=== PATIENT | female | born 1950 | race Caucasian/White ===

== ENCOUNTER 2018-11-16 09:58 | Day surgery (SDC) | payer OTHER ==
[2018-11-12 16:55] LABS: Absolute Lymphocytes (CBC) 1.7 K/uL (0.7-4.9); Basophils % 0.5 % (0-1.3); Hematocrit 46.7 % (36.0-45.0); Lymphocytes % 17.5 % (15.3-44.8); MPV 8.6 fL (7.6-11.3)
[2018-11-12 17:00] LABS: Protime INR 0.92
--- NOTE | 2018-11-12 17:13 | RAD REPORT ---
EXAM DESCRIPTION: RAD - Chest Pa And Lat (2 Views) - 11/12/2018 4:37 pm CLINICAL HISTORY: preop, patient pending foot surgery COMPARISON: March 2011 TECHNIQUE: PA and lateral views of the chest were obtained. FINDINGS: The lungs are clear. Lung markings are similar to comparison. Heart size is normal and ce ntral vasculature is within normal limits. No pleural effusion or pneumothorax seen. No acute bony finding noted. No aortic abnormality. IMPRESSION: No acute cardiopulmonary process.
[2018-11-12 17:46] LABS: Urine Appearance CLEAR; Urine Bilirubin NEGATIVE (NEG); Urine Blood NEGATIVE (NEG); Urine Color YELLOW; Urine Glucose NEGATIVE (NEG); Urine Protein NEGATIVE (NEG); Urine Specific Gravity 1.015 (1.005-1.030); Urine Urobilinogen 0.2 mg/dL (0.2-1.0); Urine pH 6.5 (5.0-7.0)
[2018-11-12 18:15] LABS: Urine Microscopic Reflex NO UMIC
--- NOTE | 2018-11-13 10:33 | EKG ---
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
[~2018-11-16 09:58] MED LIST: HYDROCORTISONE SUC 100 MG INJ IV ONE
[2018-11-16] MEDS ORDERED: LIDOCAINE 1% 20 ML MDV ONE (10:14)
[2018-11-16] MEDS ORDERED: HYDROCORTISONE SUC 100 MG INJ ONE (10:15)
[2018-11-16] MEDS ORDERED: Ringers Lactate 1,000 ML IV ONE (10:16)
[2018-11-16] MEDS ORDERED: PROPOFOL 200 MG/20 ML VIAL IV ONE ×2 (10:27→11:05)
[2018-11-16] MEDS ORDERED: FENTANYL CITR 100 MCG/2 ML ONE (10:28)
[2018-11-16] MEDS ORDERED: NS 0.9% VIAL 10 ML ONE (10:28)
[2018-11-16] MEDS ORDERED: LIDOCAINE 2% MPF 5 ML VIAL ONE (10:28)
[2018-11-16] MEDS ORDERED: MIDAZOLAM HCL 2 MG/2 ML INJ ONE (10:28)
--- NOTE | 2018-11-16 11:23 | P.OP ---
Preoperative diagnosis: right hallux ganglionic cyst Postoperative diagnosis: same Primary procedure: right hallux ganglion excision Anesthesia: mac with 8cc 1:1 0.5% marcaine 1% lidocaine plain Estimated blood loss: <10 cc Specimen: cyst for pathology Findings: ganglionic cyst right hallux ipj Operative Technique: right hallux ganglion dorsal aspect of ipj excision Complications: None Transferred to: Recovery Room Condition: Good
[2018-11-16 12:20] VITALS: BP 126/68; TEMP 96.5; O2SAT 96
--- NOTE | 2018-11-16 22:08 | OP ---
Date of Procedure: 11/16/2018 Surgeon: Sundar Sullivan Jr, DPM Preoperative Diagnosis: Right hallux ganglionic cyst. Postoperative Diagnosis: Right hallux ganglionic cyst. Procedure: Right hallux ganglion excision. Pathology: Soft tissue sent for pathologic examination. Anesthesia: MAC with 8 mL of0.5% Marcaine, 1% lidocaine plain. Hemostasis: Pneumatic ankle tourniquet at 250 mmHg. Estimated Blood Loss: Less than 10 mL. Materials: 4-0 Prolene and 4-0 Vicryl. Injectables: None. Complications: None. Procedure In Detail: Patient was to the [facility] operating room and placed on the OR table in a supine position. Patient was placed under sedation by the anesthesiologist and 8 mL 0.5% Marcaine, 1% lidocaine plain were injected in local fashion in the right lower extremity. A well-padded pneumatic ankle tourniquet was applied to the right lower extremity and the patient was prepped and draped in the usual aseptic manner. The right lower extremity was exsanguinated utilizing Esmarch bandage. Pneumatic ankle tourniquet was inflated to 250 mmHg. Attention was directed to the dorsal medial aspect of the right hallux IPJ, at which time a recurrent ganglionic cyst was identified. At this time 2 converging semi-elliptical incisions were made in a medial to lateral orientation over the dorsum of the IPJ. Skin incision was carried through superficial deep taking care to cauterize and ligate intractable neurovascular structures as necessary. The skin wedge was removed in toto. Skin incision was carried deeper to the capsular level, at which time capsular excision was performed followed by use of Bovie to stop any bleeding and hopefully retard the potential for regrowth of the ganglion. At this time, the wound was irrigated with copious amounts of normal sterile saline reapproximation of deep structures with 4-0 Prolene Vicryl and skin with 4-0 Prolene. A sterile dressing consisting of Xeroform, 4 x 4s, [place], and an Vitaly wrap was applied to the right lower extremity. The patient tolerated the procedure and anesthesia well, was transferred to recovery with vital signs stable and neurovascular status intact. BEBO/MIHIR Voice ID: [id number] Report ID: [id number] LETY
== END 2018-11-16 12:53 | disposition home or self-care (01) ==
LOC: OR 09:58
PROVIDERS: ATTEND Podiatrist Foot & Ankle Surgery
PROC: 0SBP0ZZ Excision of Right Toe Phalangeal Joint, Open Approach (ICD-10-PCS; principal; 2018-11-16 11:00)
DX: M67.471 Ganglion, right ankle and foot (principal); E27.1 Primary adrenocortical insufficiency
CPT/HCPCS: 28092; 93005; 85025; 36415; 85610; 88304; 85730; 81003; 71046; J2704 ×2; J2250; J3010; J1720 ×2

== ENCOUNTER 2018-12-29 15:52 | Inpatient (IN) | payer OTHER ==
[2018-12-29] MEDS ORDERED: ONDANSETRON 4 MG/2 ML VIAL IV PRN (16:32)
[2018-12-29] MEDS ORDERED: MORPHINE 2 MG/ML SYR IV PRN (16:32)
[2018-12-29 16:57] LABS: Absolute Lymphocytes (CBC) 1.1 K/uL (0.7-4.9); Basophils % 0.4 % (0-1.3); Hematocrit 48.4 % (36.0-45.0); Lymphocytes % 7.9 % (15.3-44.8); MPV 8.5 fL (7.6-11.3); RBC Red Blood Cell Count 5.26 M/uL (3.86-4.86)
[2018-12-29 17:02] VITALS: BMI 27.8
[2018-12-29 17:24] LABS: Bilirubin Total 0.7 mg/dL (0.2-1.0); Magnesium 2.1 mg/dL (1.8-2.4); Potassium 4.2 mmol/L (3.5-5.1); Protein, Total 7.7 g/dL (6.4-8.2); Thyroid Stimulating Hormone 0.397 uIU/mL (0.360-3.740)
[2018-12-29] MEDS: D5 0.9 NS 1,000 ML IV SCH (17:32)
[2018-12-29] MEDS: METRONIDAZOLE 500mg IVPB 500 MG/100 ML BAG IV SCH (17:34)
[2018-12-29] MEDS: Levofloxacin500mg IV 500 MG/100 ML BAG IV SCH (18:39)
--- NOTE | 2018-12-29 19:42 | RAD REPORT ---
EXAM DESCRIPTION: CT - Abdomen Pelvis Wo Contrast - 12/29/2018 7:21 pm CLINICAL HISTORY: acute diverticulitis Right lower quadrant pain, history of appendectomy COMPARISON: CTANGIO CHEST dated 04/04/2011 TECHNIQUE: Axial [address] imaging of the abdomen and pelvis was performed without IV contrast. No IV contrast was given because of allergy, abnormal renal function, patient refusal or physician re quest. Oral contrast was given. All CT scans are performed using dose optimization technique as appropriate and may include automated exposure control or mA/KV adjustment according to patient size. FINDINGS: No suspicious findings in the lung bases. The liver, spleen and pancreas show no suspicious findings on non-contrast imaging. Gallbladder and b iliary tree are also without suspicious finding. No hydronephrosis or suspicious renal mass. No significant adrenal finding. Isodense renal masses an d pyelonephritis cannot be excluded in the absence of IV contrast. The urinary bladder is without sig nificant finding. Uterus is absent. No ovarian abnormality. No gastric dilatation or gastric wall thickening. No acute small bowel finding. Oral CT contrast has reached the proximal sigmoid colon. Prominent sigmoid diverticulosis is present. There is scattered d iverticulosis elsewhere in the colon. The tip of the cecum is abnormal. There is irregular nodular th ickening at the tip of the cecum extending superiorly towards the ileocecal valve. Edematous/inflamma tory stranding is present at the tip of the cecum. By history the appendix is absent. There is a shor t segment approximately 12 mm in length that appears to be an appendiceal stump. Punctate air densiti es present adjacent to the lumen. These are believed to still be within the lumen of the bowel or div erticulum. No definitive extraluminal free air. Multiple small reactive type lymph nodes are present in the right lower quadrant. Differential considerations for the cecum finding include acute appendicitis within an appendiceal st ump. Colitis/ diverticulitis could be present at the tip of the cecum. A cecum carcinoma cannot be ex cluded. No free air or pneumatosis. No free fluid. No hernia, mass or bulky lymphadenopathy. No suspicious bony findings. IMPRESSION: Irregular nodular wall thickening in the cecum from ileocecal valve to the tip. There is surrounding inflammatory/ edematous stranding and small reactive lymph nodes. Patient does appear to have a small remnant stump of the appendix. An acute stump appendicitis would be a differential consideration. Colitis/diverticulitis can occur in this location. Carcinoma of the cecum cannot be excluded. No extraluminal free air confirmed. No abscess. Full assessment is limited is the absence of IV contrast.
[2018-12-29 19:47] LABS: Blood Morphology Comment NOT SEEN (NOT SEEN); Platelet Estimate ADEQ
[2018-12-29 19:58] LABS: Urine Appearance CLEAR; Urine Bilirubin NEGATIVE (NEG); Urine Blood 1+ (NEG); Urine Color YELLOW; Urine Glucose NEGATIVE (NEG); Urine Protein NEGATIVE (NEG); Urine Specific Gravity <=1.005 (1.005-1.030); Urine Urobilinogen 0.2 mg/dL (0.2-1.0)
[2018-12-29] MEDS ORDERED: WATER FOR INJ,STERILE 10 ML ONE (20:13)
[2018-12-29 20:46] LABS: Urine Bacteria <20 /HPF (<20); Urine Culture Reflex Order NOT NEEDED; Urine RBC <5 /HPF (NONE SEEN)
[2018-12-29] MEDS: HYDROCORTISONE SUC 100 MG INJ IV SCH (21:52)
[2018-12-29] MEDS: FAMOTIDINE 20 MG/2 ML VIAL IV SCH (21:52)
[2018-12-30] MEDS: METRONIDAZOLE 500mg IVPB 500 MG/100 ML BAG IV SCH ×5 (00:01→23:46)
--- NOTE | 2018-12-30 02:11 | HP ---
Date of Admission: 12/29/2018 Chief Complaint: Abdominal pain. History Of Present Illness: This is a 68-year-old very pleasant female patient who came into office today with 2 weeks history of abdominal pain. Patient reports that about 2 weeks ago she started to have this right lower quadrant abdominal pain and it was intermittent to start with, but over a perio d of time severity of the pain has gotten worse and the pain is more continuous now. As of last nigh t, she started to have some fever, temperature went up to 100.6 degrees Fahrenheit. She is also havi ng intermittent nausea and vomiting in last 2 weeks with this pain. The pain is localized in the rig ht lower quadrant, does not radiate anywhere. No aggravating or relieving factors. She normally has 2-3 bowel movements a day, but in last 2 weeks with this pain she has 3-4 soft to loose bowel moveme nts. Denies any blood in stool. After I evaluated her today, she was admitted to the hospital. Allergies: TO SULFA. Medications: List reviewed. Review of Systems: GI: As mentioned above. Constitutional: As mentioned above. All other systems reviewed is negative. Past Medical History: Significant for Hammon's disease, diverticulosis, hypothyroidism. Past Surgical History: Appendectomy and abdominoplasty. Family History: Not pertinent. Social History: Negative for smoking, use of alcohol socially. Physical Examination: Vital Signs: Height 5 feet 4 inches, weight 162 pounds, temperature , pulse , re spiratory rate , blood pressure . General: Awake, alert, oriented, not in distress. HEENT: Head atraumatic, normocephalic. Conjunctivae nonerythematous. Sclerae white. Mouth, no thr ush or edema noted. Ears/Nose, no mass, lesion, discharge noted. Neck: Supple. No JVD, lymph nodes, bruit, thyromegaly noted. Lungs: Bilateral good equal air entry. Clear to auscultation. No rhonchi. No rales. Heart: Normal heart sounds, no murmur or gallop. Abdomen: Soft, no distention. No guarding, rigidity. Bowel sounds normal. No hepatosplenomegaly. Patient has severe tenderness in right lower quadrant. Extremities: No leg edema. No calf tenderness. Skin: No rash, ulcer, cellulitis. Lymphatics: No lymph node enlargement in neck, supraclavicular, infraclavicular region. Neuro: No focal neurological deficit. Chest: Unremarkable. External Genitalia: Deferred. Rectal: Deferred. Laboratory Data: White count 13.6, hemoglobin 16.7, platelets 266. Sodium 136, potassium 4.2, chlor brando 103, bicarb 26, BUN 11, creatinine 0.94, glucose 111, lactic acid 1.2, procalcitonin less than 0. 05. Liver function tests unremarkable. TSH 0.397. Urinalysis negative. CAT of the abdomen and pel vis done without IV contrast today shows irregular nodular wall thickening in the cecum from ileoceca l valve to the tip. There is surrounding inflammatory and edematous stranding and small . Impression: 1.Acute appendicitis. 2.Diverticulosis. 3.Rule out carcinoma of cecum. 4.Hypothyroidism. 5.Girma's disease. Plan: Admit patient to hospital for further evaluation and management of this problem. The patient is appropriate for inpatient and is expected to spend 2 midnights in the hospital. We will go ahead and give IV steroid, IV Pepcid. DVT prophylaxis will be given using SCD. We will keep her n.p.o. I V fluid and IV antibiotics will be started, which is Levaquin and Flagyl. CAT scan findings were dis cussed with the patient and her and recommended surgical consultation with Dr. Trammell and I di d call and talk to him and details were discussed with him as well. He will evaluate the patient bárbara orrow. We will give pain medication per order and the patient had a last colonoscopy within last few years showing diverticulosis. I did talk to Dr. Trammell about possibility of conservative treatment r ight now with IV antibiotics and once her condition improves then to do colonoscopy to evaluate abnor mality in the cecum and then consider any possible surgery. DEB/MODL Voice ID: [id number]
[2018-12-30 04:35] LABS: Absolute Lymphocytes (CBC) 1.3 K/uL (0.7-4.9); Basophils % 0.6 % (0-1.3); Hematocrit 44.1 % (36.0-45.0); Lymphocytes % 11.7 % (15.3-44.8); MPV 8.1 fL (7.6-11.3)
[2018-12-30 04:55] LABS: Magnesium 2.3 mg/dL (1.8-2.4); Potassium 4.5 mmol/L (3.5-5.1)
[2018-12-30] MEDS: D5 0.9 NS 1,000 ML IV SCH ×2 (06:13→11:09)
[2018-12-30] MEDS: FAMOTIDINE 20 MG/2 ML VIAL IV SCH ×2 (08:48→21:03)
[2018-12-30] MEDS: HYDROCORTISONE SUC 100 MG INJ IV SCH ×2 (08:48→21:03)
--- NOTE | 2018-12-30 13:17 | CON ---
Date of Consultation: 12/29/2018 Reason For Consultation: Abdominal pain. History Of Present Illness: Patient is a 68-year-old female, who has had been having intermittent ri ght lower quadrant abdominal pain for about the last 2 weeks. It became more constant over the last couple of days. She saw Dr. Sewell yesterday, found to be extremely tender in the right lower quadrant . She has had low grade fevers and she was admitted and workup was done and I was consulted. She is awake, alert, feels a little bit better. Still with pain in the right lower quadrant, but no nausea or vomiting. No blood in her stool. There is some soft and loose bowel movements. No constipation . No dysuria or hematuria. No sore throat, runny nose, cough, headaches, or dizziness. No chest pa in. Review of Systems: Otherwise unremarkable. Past Medical History: Significant for Girma disease, diverticulosis, hypothyroidism. She did have a colonoscopy in the last year or 2, which shows just diverticulosis. Past Surgical History: About greater than 11 years ago, I operated on this patient for peritonitis i n the right lower quadrant and she had a perforation of the small bowel, but it could not be identifi ed where it was secondary to a chicken bone. She was managed conservatively at that time. Laparosco pic appendectomy was performed as well. She recovered from that without difficulty and she has had n o issues up until recently. Past surgical history is appendectomy, abdominoplasty. Allergies: SULFA. Social History: Patient does not smoke. Drinks occasionally. Family History: Noncontributory. Physical Examination: Vital Signs: Currently are stable. She is afebrile. General: She is awake, alert, and oriented x3. Head And Neck: Cranial nerves 2 through 12 are grossly within normal limits. No neck masses. No JV D. Throat clear. Neck is supple. Chest: Clear. Heart: S1, S2. Abdomen: Soft, nondistended. Positive bowel sounds. Negative Rovsing sign. Positive right lower q uadrant tenderness with rebound. No rigidity or guarding. Minimal rebound. Extremity: Adequately perfused. Nontender. Neuro: Nonfocal. Laboratory Data: White count was 13.6 on admission, this morning is 11.4. Left shift is improving a s well. Chemistry reviewed procalcitonin and lactic acid are within normal limits. CT of the abdome n and pelvis reviewed. It shows prominent sigmoid diverticulosis, scattered diverticulosis, ulcer in the colon. The tip of the cecum is abnormal. There is irregular nodular thickening at the tip of t he cecum extending superiorly toward the ileocecal valve. Edematous inflammatory stranding is presen t at the tip of the cecum. By history, the appendix is absent. There is a short segment approximate 12 mm in length that appears to be an appendiceal stump. Punctate air density present adjacent to t he lumen, these are believed to be still within the lumen of the bowel or diverticulum. No definitiv e extraluminal free air and multiple small reactive type lymph nodes are present in the right lower q uadrant. Differential includes acute appendicitis within the appendiceal stump, colitis, diverticuli tis could be present within the tip of the cecum. Cecum carcinoma cannot be excluded. Assessment: Acute cecal colitis/diverticulitis, possible appendiceal stump appendicitis. Recommendations: At this time, manage the patient conservatively with IV antibiotics, serial abdomin al exam. Once her clinical symptoms improve, she needs at least 2 weeks of oral antibiotics and then GI consultation for colonoscopy and further recommendations will be made after the colonoscopy is done and biopsy of the area is done. Plan of care discussed in detail with the patient, , and Dr. Sewell. RAMYA/MIHIR Voice ID: [id number] Report ID: [id number]
[2018-12-30] MEDS: Levofloxacin500mg IV 500 MG/100 ML BAG IV SCH (16:00)
[2018-12-30] MEDS ORDERED: WATER FOR INJ,STERILE 10 ML ONE (20:26)
--- NOTE | 2018-12-30 23:55 | PN ---
Date of Progress Note: 12/30/2018 Subjective: Patient was seen this morning for followup. No new complaints or problems reported. He r abdominal pain remains unchanged from yesterday. She did use 1 dose of pain medication in the last night and that actually helped her with her pain. Objective: Vital Signs: Reviewed. HEENT: Unremarkable. Lungs: Clear to auscultation. Heart: Sounds normal. Abdomen: Soft. Bowel sounds normal. No guarding, rigidity. No distention. Patient has significan t tenderness in right lower quadrant, remains unchanged from yesterday. Extremities: No leg edema. Laboratory Data: White count 11.4, hemoglobin 15.7, platelets 231. Sodium 149, potassium 4.5, chlor brando 104, bicarb 28, BUN 13, creatinine 0.92, glucose 153, magnesium 2.3. Impression: 1.Acute diverticulitis. 2.[place] disease. 3.Hypothyroidism. Plan: Details were discussed with Dr. Trammell last night . Dr. Trammell does not think that wh at radiologist is thinking is appendix stump that is appearing to be infected, but Dr. Trammell thinks i t is probably diverticulum in the cecum and that is infected. In any case, he has suggested conserva tive treatment right now with medical management, IV antibiotics, and once her condition is better, w e will discharge her to go home with oral antibiotics, elective colonoscopy in 4-6 weeks, and then an y further intervention if needed. Depending on the colonoscopy and her response to treatment, we luz l be making those decisions on outpatient basis. Dr. Trammell has started her on clear liquid diet and ambulation was encouraged. I will see her tomorrow for followup, possible discharge to go home either tomorrow or day after tomorrow depending on her pain. DEB/MODL Voice ID: [id number] Report ID: [id number]
[2018-12-31 04:34] LABS: Absolute Lymphocytes (CBC) 1.2 K/uL (0.7-4.9); Basophils % 0.6 % (0-1.3); Hematocrit 41.1 % (36.0-45.0); Lymphocytes % 14.4 % (15.3-44.8); MPV 8.1 fL (7.6-11.3); RBC Red Blood Cell Count 4.45 M/uL (3.86-4.86)
[2018-12-31] MEDS: METRONIDAZOLE 500mg IVPB 500 MG/100 ML BAG IV SCH ×2 (06:12→11:00)
[2018-12-31 08:33] VITALS: O2SAT 95
[2018-12-31] MEDS: FAMOTIDINE 20 MG/2 ML VIAL IV SCH (08:36)
[2018-12-31] MEDS ORDERED: predniSONE 20 MG TAB PO SCH (09:00)
--- NOTE | 2018-12-31 11:18 | PN ---
Subjective: Patient is awake and alert and much better. Physical Examination: Vital Signs: Stable, afebrile. normal. Abdomen: Soft. Minimal tenderness in the right lower quadrant. No peritonitis. Assessment: Acute cecal inflammation either diverticulitis or colitis. Recommendation: Cleared from surgery standpoint for discharge on oral antibiotics. We will need col onoscopy in 4 to 6 weeks and surgical intervention based upon the finding. RAMYA/MIHIR Voice ID: [id number] Report ID: [id number]
[2018-12-31] MEDS: Levofloxacin500mg IV 500 MG/100 ML BAG IV SCH (16:00)
[2018-12-31 16:36] VITALS: BP 115/64; TEMP 97.5
--- NOTE | 2019-01-01 04:10 | DS ---
Date of Discharge: 12/31/2018 Disposition: Discharged to go home. Physical Examination: HEENT: Unremarkable. Lungs: Clear to auscultation. Heart: Sounds normal. Abdomen: Soft. Bowel sounds normal. No guarding, rigidity, distention. Very minimum tenderness in right lower quadrant, which is significantly better compared to yesterday and day before yesterday. Bowel sounds normoactive. Extremities: No leg edema. Laboratory Data: White count 13.6, hemoglobin 16.7, platelets 266. Today, white count 8.3, hemoglob in 14.3, platelets 230. Upon admission sodium 136, potassium 4.2 chloride 103, bicarb 26, BUN 11, cr eatinine 0.94. Today sodium 139, potassium 4.5, chloride 104 bicarb 28, BUN 13, creatinine 0.9. Hospital Course: 68-year-old pleasant female patient, admitted to the hospital after she came into e mergency room with right lower quadrant abdominal pain associated with nausea, vomiting, fever. Plea se see dictated H and P for more information. Patient had severe tenderness in right lower quadrant when I examined her at the office and she was admitted to the hospital. Was negative for any perfora tion. No evidence of free air under diaphragm. She was seen in consultation by Dr. Trammell from [facility]. Details were discussed with him. CAT scan of the abdomen shows evidence of inflammatory changes in the cecum and the patient had appendectomy obtained in the past. Stump of appendix appea red to be enlarged, inflamed, and behaving like acute appendicitis. Other possibility was that this area of abnormality that appears to be stump of the appendix, it could be diverticulum in the cecum. In any case, there was no free air under diaphragm. Dr. Trammell started her on clear liquid diet yest erday. She tolerated that well. This morning when I saw her her abdominal pain was significantly be tter. Tenderness was significantly better. She was discharged to go home in stable condition. Eric montoya either she had acute diverticulitis or she is acting like acute appendicitis with infection of the stump of appendix. In any case, she is responding well to IV antibiotic which were Levaquin and Flagyl. Our plan is to discharge her to go home with oral antibiotics and I will follow up next diego garcia at the office. Our plan is to give her adequate antibiotic therapy and then on outpatient basis sh e should have colonoscopy done in about 4 to 6 weeks and further plan of treatment will depend on elizabeth t. Final Diagnoses: 1.Acute diverticulitis. 2.Rule out acute appendicitis. 3.Carcinoma of colon. 4.Hypothyroidism. 5.[place] disease. Discharge Medications And Instructions: 1.Continue all prior home medication. 2.Take Levaquin 500 mg by mouth daily for 12 days. 3.Flagyl 500 mg 3 times a day for 10 days. 4.Follow up at my office next week per instructions. DEB/MODL Voice ID: [id number] Report ID: [id number]
== END 2018-12-31 17:37 | disposition home or self-care (01) | DRG 392 ==
LOC: 4TH 15:58
PROVIDERS: ADMIT Internal Medicine; ATTEND Internal Medicine
DX: K57.92 Diverticulitis of intestine, part unspecified, without perforation or abscess without bleeding (principal); K35.80 Unspecified acute appendicitis; E27.1 Primary adrenocortical insufficiency; C18.9 Malignant neoplasm of colon, unspecified; E03.9 Hypothyroidism, unspecified; Z88.2 Allergy status to sulfonamides
CPT/HCPCS: 36415; 74176; 80048; 80053; 81001; 83605; 83735; 84145; 84443; 85025; J1720; J2270; J7042; J7512

== ENCOUNTER 2021-02-06 19:35 | Emergency (ER) | payer OTHER ==
[2021-02-06] MEDS ORDERED: HYDROCORTISONE SUC 100 MG INJ ONE (19:59)
[2021-02-06] MEDS ORDERED: ONDANSETRON 4 MG/2 ML VIAL ONE (20:00)
[2021-02-06] MEDS ORDERED: KETOROLAC 30 MG/ML INJ ONE ×2 (20:00→21:15)
[2021-02-06] MEDS ORDERED: NA CHLORIDE 0.9% 1,000 ML ONE (20:00)
[2021-02-06 20:13] LABS: Absolute Lymphocytes (CBC) 3.6 K/uL (0.7-4.9); Basophils % 0.8 % (0-1.3); Hematocrit 44.8 % (36.0-45.0); Lymphocytes % 31.3 % (15.3-44.8); MPV 8.2 fL (7.6-11.3); RBC Red Blood Cell Count 4.88 M/uL (3.86-4.86)
--- NOTE | 2021-02-06 20:28 | RAD REPORT ---
EXAM DESCRIPTION: CT - [id number] - 02/06/2021 8:06 pm CLINICAL HISTORY: Trauma, head and neck injury. PAIN COMPARISON: No comparisons TECHNIQUE: Axial 5 mm thick images of the head were obtained. Axial 2 mm thick images of the cervical spine were obtained with sagittal and coronal reconstruction images generated and reviewed. All CT scans are performed using dose optimization technique as appropriate and may include automated exposure control or mA/KV adjustment according to patient size. FINDINGS: CT HEAD WITHOUT CONTRAST: No acute hemorrhage, hydrocephalus or extra-axial collection is identified.No areas of brain edema or midline shift. Mild fracture suspected involving the posterolateral wall of the right maxillary antrum with small am ount of blood present in the right maxillary antrum.The calvarium is intact. CT CERVICAL SPINE WITHOUT CONTRAST: No fracture or subluxation.Mild lower cervical degenerative spondylosis is present with posterior ost eophyte and disc thinning. 3 mm degenerative anterolisthesis of C4 on 5.No prevertebral soft tissues swelling is identified. IMPRESSION: No acute intracranial or cervical spine findings. Mild fracture of the posterolateral wall right maxillary sinus with a small amount hemorrhagic fluid in the right maxillary antrum.
[2021-02-06] MEDS ORDERED: AMOX/K CLAV 875 MG TAB ONE (20:43)
[2021-02-06] MEDS ORDERED: predniSONE 20 MG TAB ONE (20:43)
--- NOTE | 2021-02-06 21:11 | ER ---
Nurse's Notes [facility] Name: Alyx Pineda Age: 70 yrs Sex: Female : 1950 Arrival Date: 02/06/2021 Time: 19:36 Bed 6 Private MD: Diagnosis: Fall on same level, unspecified;Maxillary fracture, unspecified-posteriolateral wall right maxillary sinus;Displaced fracture of fifth metatarsal bone, right foot-base;Abrasion of other part of head, initial encounter-facial;Unspecified injury of head, initial encounter;Concussion without loss of consciousness Presentation: 02/06 19:40 Chief complaint: Spouse and/or significant other states: pt fell approx 45 mins ago and bb is now confused. Care prior to arrival: None. Mechanism of Injury: Fall from standing position. Trauma event details: Injury occurred in the [facility], Injury occurred: at home. Injury occurred: February 06, 2021. 19:40 Acuity: TATY 2 bb 19:40 Method Of Arrival: Wheelchair bb 20:06 Coronavirus screen: At this time, the client does not indicate any symptoms associated bb with coronavirus-19. Ebola Screen: No symptoms or risks identified at this time. Initial Sepsis Screen: Does the patient meet any 2 criteria? No. Patient's initial sepsis screen is negative. Does the patient have a suspected source of infection? No. Patient's initial sepsis screen is negative. Risk Assessment: Do you want to hurt yourself or someone else? Patient reports no desire to harm self or others. Onset of symptoms was February 06, 2021. 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 - Family history:: not pertinent. - Social history:: Smoking status: Patient denies any tobacco usage or history of. Screenin:40 Abuse screen: Denies threats or abuse. Tuberculosis screening: No symptoms or risk bb factors identified. Primary Survey: 19:40 NO uncontrolled hemorrhage observed. Breathing/Chest: Respiratory pattern: regular, bb Respiratory effort: spontaneous, unlabored. Circulation: Heart tones present. Disability Alert. Secondary Survey: 19:45 HEENT: Face Other appears to have abrasions above Left eye, nose and chin. vg1 19:45 Gastrointestinal: No deficits noted. : No deficits noted. Musculoskeletal: Swelling vg1 present in right lateral malleolus and right middle finger. Assessment: 20:01 Pain: Complains of pain in dorsal aspect of middle phalanx of right middle finger and tw5 dorsal aspect of proximal phalanx of right middle finger. Neuro: Level of Consciousness is awake, alert, obeys commands, Oriented to person, place. Cardiovascular: Capillary refill < 3 seconds is brisk in bilateral fingers. Cardiovascular: Heart tones S1 S2 present. Respiratory: Airway is patent Trachea midline Respiratory effort is even, unlabored. Injury Description: Abrasion sustained to nose and left jaw. 21:03 Reassessment: Patient appears in no apparent distress at this time. No changes from vg1 previously documented assessment. Patient and/or family updated on plan of care and expected duration. Pain level reassessed. Patient is alert, oriented x 3, equal unlabored respirations, skin warm/dry/pink. 21:47 Reassessment: Patient appears in no apparent distress at this time. Patient and/or vg1 family updated on plan of care and expected duration. Pain level reassessed. Patient is alert, oriented x 3, equal unlabored respirations, skin warm/dry/pink. Vital Signs: 19:40 BP 140 / 74; Pulse 78; Resp 16 S; Temp 98.3(O); Pulse Ox 100% on R/A; Weight 70.31 kg bb (R); Height 5 ft. 4 in. (162.56 cm) (R); 21:03 BP 131 / 78; Pulse 75; Resp 16; Pulse Ox 99% ; vg1 21:47 BP 112 / 64; Pulse 76; Resp 15; Pulse Ox 100% ; vg1 19:40 Body Mass Index 26.61 (70.31 kg, 162.56 cm) bb Falls Coma Score: 19:40 Eye Response: spontaneous(4). Verbal Response: confused(4). Motor Response: obeys bb commands(6). Total: 14. 20:00 Eye Response: spontaneous(4). Verbal Response: oriented(5). Motor Response: obeys nicole commands(6). Total: 15. Trauma Score (Adult): 19:40 Eye Response: spontaneous(1); Verbal Response: confused(1); Motor Response: obeys bb commands(2); Systolic BP: > 89 mm Hg(4); Respiratory Rate: 10 to 29 per min(4); Fletcher Score: 14; Trauma Score: 12 ED Course: 19:36 Patient arrived in ED. wm 19:38 Andres Kovacs MD is Attending Physician. nicole 19:40 Patient maintains SpO2 saturation greater than 95% on room air. bb 19:52 Yisel Jennings is Primary Nurse. tw5 19:53 Missed attempt(s): 20 gauge in left antecubital area. Bleeding controlled, band aid bb applied, catheter tip intact. 19:55 Missed attempt(s): 22 gauge in left wrist. Bleeding controlled, band aid applied, bb catheter tip intact. 20:01 Initial lab(s) drawn, by ED staff, sent to lab. Missed attempt(s): 22 gauge in right tw5 hand. Bleeding controlled, band aid applied, catheter tip intact. 20:03 Patient has correct armband on for positive identification. Placed in gown. Bed in low tw5 position. Call light in reach. Side rails up X 1. Adult w/ patient. Pulse ox on. NIBP on. Door closed. Noise minimized. Lights dimmed. Warm blanket given. Verbal reassurance given. 20:04 Triage completed. bb 20:06 CT Head C Spine In Process Unspecified. EDMS 20:06 Arm band placed on Patient placed in an exam room, on a stretcher, on monitoring specialist, bb on pulse oximetry. Family accompanied patient. 20:58 Hand Right 3 View XRAY In Process Unspecified. EDMS 20:58 Foot Right 3 View XRAY In Process Unspecified. EDWA 21:10 Avila Velasquez MD is Referral Physician. nicole Administered Medications: 20:39 Not Given (Duplicate Order): NS 0.9% 1000 ml IV at 1 bolus Per protocol; 1000 mL bolus nicole 20:39 Not Given (Duplicate Order): Ketorolac 30 mg IVP once nicole 20:39 Not Given (Duplicate Order): Zofran (Ondansetron) 4 mg IVP once; over 2 minutes nicole 20:39 Not Given (Duplicate Order): Solu-CORTEF (hyrdoCORTISONE) 100 mg IVP once nicole 20:45 Drug: predniSONE 20 mg Route: PO; vg1 21:46 Follow up: Response: No adverse reaction vg1 20:45 Drug: Augmentin (Amoxicillin-Clavulanate) 875 mg Route: PO; vg1 21:47 Follow up: Response: No adverse reaction vg1 20:50 Drug: Neosporin (liptnlkm-gcmfgxrdnd-mxkshwioz) Ointment 1 application Route: Topical; vg1 Site: affected area; 21:47 Follow up: Response: No adverse reaction vg1 21:30 Drug: Ketorolac 60 mg Route: IM; Site: right gluteus; vg1 Intake: 19:40 PO: 0ml; Total: 0ml. bb Outcome: 21:10 Discharge ordered by . nicole 21:48 Discharged to home via wheelchair, with family. vg1 21:48 Condition: good 21:48 Discharge instructions given to patient, family, Instructed on discharge instructions, follow up and referral plans. medication usage, Demonstrated understanding of instructions, follow-up care, medications, Prescriptions given X 4. 21:49 Patient left the ED. bb Signatures: Dispatcher [employer] EDWA Andres Kovacs MD MD cha Ballard, Brenda, RN RN Radha Shaffer RN RN 1 Raquel Mims Tiffany tw5
--- NOTE | 2021-02-06 21:11 | EDPHYS ---
Physician Documentation [facility] Name: Alyx Pineda Age: 70 yrs Sex: Female : 1950 Arrival Date: 02/06/2021 Time: 19:36 Bed 6 Private MD: ED Physician Andres Kovacs HPI: 02/06 19:50 This 70 yrs old Female presents to ER via Unassigned with complaints of Fall nicole Injury. 19:50 Details of fall: The patient fell from an upright position, while walking. Onset: The nicole symptoms/episode began/occurred just prior to arrival. Associated injuries: The patient sustained injury to the head, neck injury, right hand and right foot, contusion, decreased range of motion. Severity of symptoms: At their worst the symptoms were moderate, in the emergency department the symptoms are unchanged. The patient has not experienced similar symptoms in the past. 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 - Family history:: not pertinent. - Social history:: Smoking status: Patient denies any tobacco usage or history of. ROS: 19:57 Constitutional: Negative for fever, chills, and weight loss, Eyes: Negative for injury, nicole pain, redness, and discharge, ENT: Negative for injury, pain, and discharge, Cardiovascular: Negative for chest pain, palpitations, and edema, Respiratory: Negative for shortness of breath, cough, wheezing, and pleuritic chest pain, Abdomen/GI: Negative for abdominal pain, nausea, vomiting, diarrhea, and constipation, Back: Negative for injury and pain, : Negative for injury, bleeding, discharge, and swelling, Neuro: Negative for headache, weakness, numbness, tingling, and seizure, Psych: Negative for depression, anxiety, suicide ideation, homicidal ideation, and hallucinations, Allergy/Immunology: Negative for hives, rash, and allergies, Endocrine: Negative for neck swelling, polydipsia, polyuria, polyphagia, and marked weight changes, Hematologic/Lymphatic: Negative for swollen nodes, abnormal bleeding, and unusual bruising. 19:57 MS/extremity: Positive for deformity, pain, of the dorsal aspect of middle phalanx of right middle finger, dorsal aspect of proximal phalanx of right middle finger, palmar aspect of middle phalanx of right middle finger and palmar aspect of proximal phalanx of right middle finger. Exam: 19:57 Constitutional: This is a well developed, well nourished patient who is awake, alert, nicole and in no acute distress. Eyes: Pupils equal round and reactive to light, extra-ocular motions intact. Lids and lashes normal. Conjunctiva and sclera are non-icteric and not injected. Cornea within normal limits. Periorbital areas with no swelling, redness, or edema. ENT: Nares patent. No nasal discharge, no septal abnormalities noted. Tympanic membranes are normal and external auditory canals are clear. Oropharynx with no redness, swelling, or masses, exudates, or evidence of obstruction, uvula midline. Mucous membranes moist. Neck: Trachea midline, no thyromegaly or masses palpated, and no cervical lymphadenopathy. Supple, full range of motion without nuchal rigidity, or vertebral point tenderness. No Meningismus. Chest/axilla: Normal chest wall appearance and motion. Nontender with no deformity. No lesions are appreciated. Cardiovascular: Regular rate and rhythm with a normal S1 and S2. No gallops, murmurs, or rubs. Normal PMI, no JVD. No pulse deficits. Respiratory: Lungs have equal breath sounds bilaterally, clear to auscultation and percussion. No rales, rhonchi or wheezes noted. No increased work of breathing, no retractions or nasal flaring. Abdomen/GI: Soft, non-tender, with normal bowel sounds. No distension or tympany. No guarding or rebound. No evidence of tenderness throughout. Back: No spinal tenderness. No costovertebral tenderness. Full range of motion. Female : Normal external genitalia. Skin: Warm, dry with normal turgor. Normal color with no rashes, no lesions, and no evidence of cellulitis. Neuro: Awake and alert, GCS 15, oriented to person, place, time, and situation. Cranial nerves II-XII grossly intact. Motor strength 5/5 in all extremities. Sensory grossly intact. Cerebellar exam normal. Normal gait. Psych: Awake, alert, with orientation to person, place and time. Behavior, mood, and affect are within normal limits. 19:57 Head/face: Noted is contusion, hematoma, swelling, that is moderate, of the forehead, right cheek, left cheek and chin. Vital Signs: 19:40 BP 140 / 74; Pulse 78; Resp 16 S; Temp 98.3(O); Pulse Ox 100% on R/A; Weight 70.31 kg bb (R); Height 5 ft. 4 in. (162.56 cm) (R); 21:03 BP 131 / 78; Pulse 75; Resp 16; Pulse Ox 99% ; vg1 21:47 BP 112 / 64; Pulse 76; Resp 15; Pulse Ox 100% ; vg1 19:40 Body Mass Index 26.61 (70.31 kg, 162.56 cm) bb Purmela Coma Score: 19:40 Eye Response: spontaneous(4). Verbal Response: confused(4). Motor Response: obeys bb commands(6). Total: 14. 20:00 Eye Response: spontaneous(4). Verbal Response: oriented(5). Motor Response: obeys nicole commands(6). Total: 15. Trauma Score (Adult): 19:40 Eye Response: spontaneous(1); Verbal Response: confused(1); Motor Response: obeys bb commands(2); Systolic BP: > 89 mm Hg(4); Respiratory Rate: 10 to 29 per min(4); Fletcher Score: 14; Trauma Score: 12 MDM: 19:39 Patient medically screened. nicole 20:00 Differential diagnosis: Contusion of Hematoma on Concussion contusion. Differential nicole diagnosis: contusion, fracture, sprain. Data reviewed: vital signs, nurses notes, lab test result(s), radiologic studies. Data interpreted: monitoring specialist: rate is 82 beats/min, rhythm is regular, Pulse oximetry: on room air is 100 %. Test interpretation: by ED physician or midlevel provider: plain radiologic studies. Counseling: I had a detailed discussion with the patient and/or guardian regarding: the historical points, exam findings, and any diagnostic results supporting the discharge/admit diagnosis, lab results, radiology results. 02/06 19:39 Order name: Basic Metabolic Panel 02/06 19:39 Order name: CBC with Diff; Complete Time: 20:34 02/06 19:39 Order name: Type And Screen 02/06 19:40 Order name: Hand Right 3 View XRAY [facility] 02/06 19:40 Order name: Foot Right 3 View XRAY [facility] 02/06 19:40 Order name: CT Head C Spine; Complete Time: 20:34 [facility] 02/06 19:39 Order name: Labs collected and sent; Complete Time: 20:14 02/06 19:40 Order name: Marco Antonio. Order: rings off; Complete Time: 19:54 [facility] 02/06 21:05 Order name: Walking boot; Complete Time: 21:46 nicole Administered Medications: 20:39 Not Given (Duplicate Order): NS 0.9% 1000 ml IV at 1 bolus Per protocol; 1000 mL bolus nicole 20:39 Not Given (Duplicate Order): Ketorolac 30 mg IVP once nicole 20:39 Not Given (Duplicate Order): Zofran (Ondansetron) 4 mg IVP once; over 2 minutes nicole 20:39 Not Given (Duplicate Order): Solu-CORTEF (hyrdoCORTISONE) 100 mg IVP once nicole 20:45 Drug: predniSONE 20 mg Route: PO; vg1 21:46 Follow up: Response: No adverse reaction vg1 20:45 Drug: Augmentin (Amoxicillin-Clavulanate) 875 mg Route: PO; vg1 21:47 Follow up: Response: No adverse reaction vg1 20:50 Drug: Neosporin (xuufnnyj-zunvovshou-hvisxyuda) Ointment 1 application Route: Topical; vg1 Site: affected area; 21:47 Follow up: Response: No adverse reaction vg1 21:30 Drug: Ketorolac 60 mg Route: IM; Site: right gluteus; vg1 Disposition Summary: 02/06/21 21:10 Discharge Ordered Location: Home nicole Problem: new nicole Symptoms: have improved nicole Condition: Stable nicole Diagnosis - Fall on same level, unspecified nicole - Maxillary fracture, unspecified - posteriolateral wall right maxillary sinus nicole - Displaced fracture of fifth metatarsal bone, right foot - base nicole - Abrasion of other part of head, initial encounter - facial nicole - Unspecified injury of head, initial encounter nicole - Concussion without loss of consciousness nicole Followup: nicole - With: Private Physician - When: 2 - 3 days - Reason: Recheck today's complaints, Continuance of care, Re-evaluation by your physician Followup: nicole - With: Avila Velasquez MD - When: 2 - 3 days - Reason: Recheck today's complaints, Re-evaluation by your physician Discharge Instructions: - Discharge Summary Sheet nicole - Abrasion nicole - Head Injury, Adult nicole - Metatarsal Fracture nicole - Abrasion, [id number] nicole - Facial or Scalp Contusion nicole - Head Injury, Adult, Iych-fk-Zogo nicole - Facial or Scalp Contusion, [id number]-na-Ikrt [facility] Forms: - Medication Reconciliation Form [facility] - Thank You Letter [facility] - Antibiotic Education [facility] - Prescription Opioid Use [facility] Prescriptions: - ondansetron 4 mg Oral tablet,disintegrating - place 1 tablet by TRANSLINGUAL route every 6-8 hours; 14 tablet; Refills: 0, [facility] Product Selection Permitted - Ibuprofen 600 mg Oral Tablet - take 1 tablet by ORAL route every 6 hours As needed take with food; 20 tablet; [facility] Refills: 0, Product Selection Permitted - Prednisone 20 mg Oral Tablet - take 1 tablet by ORAL route once daily for 3 days; 3 tablet; Refills: 0, [facility] Product Selection Permitted - Augmentin 875-125 mg Oral Tablet - take 1 tablet by ORAL route every 12 hours for 7 days; 14 tablet; Refills: 0, [facility] Product Selection Permitted Signatures: Dispatcher [employer] Andres Brock MD MD cha Ballard, Brenda RN RN Radha Shaffer RN RN [address] [facility]
[2021-02-06 21:17] LABS: Potassium 4.3 mmol/L (3.5-5.1)
--- NOTE | 2021-02-06 21:17 | RAD REPORT ---
EXAM DESCRIPTION: RAD - Hand Right 3 View - 02/06/2021 8:58 pm CLINICAL HISTORY: PAIN COMPARISON: No comparisons FINDINGS: Hardware is present in the distal radius. Old ulnar styloid avulsion is noted. Moderate ra diocarpal arthritic changes are present. No acute fracture or dislocation seen.
--- NOTE | 2021-02-06 21:19 | RAD REPORT ---
EXAM DESCRIPTION: RAD - Foot Right 3 View - 02/06/2021 8:58 pm CLINICAL HISTORY: PAIN COMPARISON: No comparisons FINDINGS: Fracture is seen involving the base of the the fifth metatarsal compatible with a Flores fr acture. No additional fracture or dislocation seen. Mild hallux valgus.
[2021-02-06 22:57] VITALS: TEMP 98.3
[2021-02-06 22:58] VITALS: BP 112/64; O2SAT 100
== END 2021-02-06 21:49 | disposition home or self-care (01) ==
LOC: ER 19:35
DX: S06.0X0A Concussion without loss of consciousness, initial encounter (principal); S02.40CA Maxillary fracture, right side, initial encounter for closed fracture; S92.351A Displaced fracture of fifth metatarsal bone, right foot, initial encounter for closed fracture; W18.30XA Fall on same level, unspecified, initial encounter; Y93.01 Activity, walking, marching and hiking; Z88.2 Allergy status to sulfonamides
CPT/HCPCS: 85025; 80048; 36415; 86900; 86850; 86901; 70450; 72125; 73130; 73630; 96372; 99284; J7030; J1720; J2405; J7512